=== PATIENT | male | born 1975 | race Caucasian/White ===

== ENCOUNTER 2023-10-23 08:30 | Inpatient (IN) ==
[2023-10-23] MEDS ORDERED: LORazepam 2 mg VIAL 1 ml IV PUSH PRN ×2 (09:54)
[2023-10-23] MEDS ORDERED: Lorazepam PYXIS KEY PRN (10:01)
[2023-10-23] MEDS ORDERED: Influenza vaccine *QUAD* *2023-24* 0.5 ML SYRINGE IM ONE (12:00)
[2023-10-26 22:05] VITALS: BP 124/87
== END 2023-10-27 11:00 | disposition home or self-care (01) | DRG 53 ==
LOC: MEDTELE 08:31
PROVIDERS: ADMIT Psychiatry & Neurology Neurology; ATTEND Psychiatry & Neurology Neurology